=== PATIENT | male | born 1945 | race Caucasian/White ===

== ENCOUNTER → 2016-04-29 | Outpatient (CLI) | payer MEDICARE, OTHER ==
[~2016-04-29] MED LIST: ALLO10TA PO; ASPI1TAB PO; FOLI800T PO; LEVO112T25 PO; LISI10TA2 PO; NEXI40CA PO; VITA250011 SL; ZOCO80TA PO
--- NOTE | 2016-04-29 10:13 | REP ---
CT chest without contrast 04/29/2016 Indication: Low dose lung screening CT of chest 10/30/2015 demonstrated a 6.5 mm irregular not pleural-based nodular opacity suggesting scarring versus less likely a parenchymal nodule. Technique: 3 mm contiguous spiral axial sections performed through chest without contrast. Findings: The thoracic aorta is without aneurysm. There are moderate coronary artery calcifications. There are a few calcified sub cm mediastinal and hilar nodes consistent with old granulomatous disease. There are also a few nonspecific noncalcified mediastinal nodes, largest 5 mm short-axis diameter in the subcarinal region. Minimal dependent atelectasis present in lung bases bilaterally. Persistent inferior lingular nodule with irregular margins measures 7.7 x 5.5 mm size unchanged and most compatible with focal scarring. There is a stable 4 mm calcified granuloma within the anterior aspect of the right upper lobe, image 26 series 201. Minimal posterior nodular pleural thickening within the region superior segment right lower lobe, represents interval change most compatible with scarring, best seen on images 44, and 52, series 201. There are scattered small calcified granulomata within the spleen. The visualized portions of liver, pancreas are unremarkable. There has been prior cholecystectomy. Kidneys are without hydronephrosis. 7 mm exophytic hypodense focus within the right kidney is too small to accurately characterize, yet is likely a tiny cyst Impression: Stable 7.7 x 5.5 mm irregular inferior lingular nodule, abutting the pleura. This is most compatible with scarring and less likely pulmonary nodule. Recommend follow-up CT chest in 6 months for reevaluation. Minimal posterior nodular pleural thickening within the region superior segment right lower lobe, represents interval change most compatible with scarring. Recommend follow-up CT in 3-6 months. Old granulomatous disease. Signed by Kady Dunlap MD 04/29/2016 10:04 A
== END ==
LOC: M RAD 08:40
PROVIDERS: ATTEND Physician Assistant
DX: R91.8 Other nonspecific abnormal finding of lung field (principal)

== ENCOUNTER → 2016-12-23 | Outpatient (CLI) | payer MEDICARE, OTHER ==
--- NOTE | 2016-12-23 16:36 | REP ---
Clinical: Follow-up pulmonary nodule. Comparison: 04/29/2016, 10/30/2015. Findings: The bilateral lung felipe are relatively well aerated, symmetric and essentially clear. Calcified granulomata in the right upper and right middle lobes along with scattered calcified lymph nodes are consistent with prior granulomatous disease. The irregular densities at the lingula are compatible with scarring and appear less conspicuous on current examination. No new consolidation, nodule or mass lesion appreciated. No pleural effusion/reaction. No pneumothorax. Tracheobronchial tree is patent. No significant adenopathy. Surrounding musculoskeletal structures demonstrate age-related changes. Impression: Chronic stable changes including evidence for prior granulomatous disease. Findings at the lingula are most consistent with scarring. No new acute mediastinal or pleuroparenchymal process noted. Signed by Rohan Root MD 12/23/2016 04:27 P
== END ==
LOC: M RAD 15:47
PROVIDERS: ATTEND Internal Medicine
DX: R91.8 Other nonspecific abnormal finding of lung field (principal)

== ENCOUNTER → 2017-12-11 | Outpatient (CLI) | payer MEDICARE, OTHER | LOC: M RAD 07:57 | DX: I15.0 Renovascular hypertension (principal); I70.1 Atherosclerosis of renal artery; N28.1 Cyst of kidney, acquired | CPT/HCPCS: 76775 ==

== ENCOUNTER → 2020-02-24 | Outpatient (REF) | payer MEDICARE, OTHER ==
[~2020-02-24] MED LIST changes: -ASPI1TAB PO; +ASPI81TA26 PO; +LISI10TA15 PO; -LISI10TA2 PO
== END ==
LOC: M WUC 15:53
PROVIDERS: ATTEND Physician Assistant
DX: J02.9 Acute pharyngitis, unspecified (principal)

== ENCOUNTER → 2020-04-06 | Outpatient (REF) | payer MEDICARE, OTHER | LOC: M LAB REF 19:27 | PROVIDERS: ATTEND Physician Assistant Medical | DX: Z11.59 Encounter for screening for other viral diseases (principal) ==

== ENCOUNTER → 2022-06-26 | Outpatient (REF) | payer MEDICARE, OTHER ==
[~2022-06-26] MED LIST changes: +FOLI0.8T3 PO; -FOLI800T PO; -LISI10TA15 PO; +LISI10TA24 PO
[2022-06-26 16:06] LABS: POTASSIUM SERUM 4.3 MMOL/L (3.5-5.1)
== END ==
LOC: M LAB REF 15:09
PROVIDERS: ATTEND Nurse Practitioner Family
DX: N18.32 Chronic kidney disease, stage 3b (principal)

== ENCOUNTER → 2023-03-17 | Outpatient (CLI) | payer MEDICARE, OTHER | LOC: M WHC 10:05 | PROVIDERS: ATTEND Nurse Practitioner Family | DX: M81.0 Age-related osteoporosis without current pathological fracture (principal) ==

== ENCOUNTER → 2023-09-28 | Outpatient (CLI) | payer MEDICARE, OTHER | LOC: M RAD 13:04 | PROVIDERS: ATTEND Nurse Practitioner Family | DX: N18.32 Chronic kidney disease, stage 3b (principal) ==

== ENCOUNTER → 2024-03-02 | Outpatient (REF) | payer MEDICARE, OTHER ==
[2024-03-02 18:24] LABS: TOTAL PROTEIN,RANDOM URINE 118.5 MG/DL (0.0-14.0)
[2024-03-02 18:29] LABS: CREATININE,RANDOM URINE 127.4 MG/DL
== END ==
LOC: M LAB REF 17:14
PROVIDERS: ATTEND Nurse Practitioner Family
DX: R80.9 Proteinuria, unspecified (principal)

== ENCOUNTER → 2024-12-01 | Outpatient (REF) | payer MEDICARE, OTHER ==
[2024-12-01 14:40] LABS: CALCIUM LEVEL 8.9 MG/DL (8.3-10.6); CARBON DIOXIDE LEVEL 25.0 MMOL/L (20-31); CHLORIDE LEVEL 105.0 MMOL/L (98-107); CREATININE FOR GFR 2.31 MG/DL (0.70-1.30); GLOMERULAR FILTRATION RATE 28.4 (>42); POTASSIUM SERUM 4.0 MMOL/L (3.5-5.1); SODIUM LEVEL 140.0 MMOL/L (136-145)
== END ==
LOC: M LABWUC 12:21
PROVIDERS: ATTEND Family Medicine
DX: Z01.818 Encounter for other preprocedural examination (principal)